=== PATIENT | male | born 1975 | race Caucasian/White ===

== ENCOUNTER 2018-06-19 11:21 | Day surgery (SDC) | payer MEDICAID ==
[~2018-06-19] VITALS: Ht 171.4 cm; Wt 86.4 kg
[~2018-06-19 11:21] MED LIST: LOPE2 PO; OXYC10 PO; SODIUM CHLORIDE 0.9% 1,000 ML IV ONE
[2018-06-19] MEDS ORDERED: PROPOFOL 1% 20 ML VIAL IVP ONE (11:22)
[2018-06-19] MEDS ORDERED: LIDOCAINE/PF 2% 5 ML VIAL INJ ONE (11:22)
== END 2018-06-19 14:30 | disposition home or self-care (01) ==
LOC: SURGERY 11:21 → EDSEX 13:00 → SURGERY 14:30
PROVIDERS: ATTEND Student in an Organized Health Care Education/Training Program
DX: K31.89 Other diseases of stomach and duodenum (principal); K31.82 Dieulafoy lesion (hemorrhagic) of stomach and duodenum; Z88.5 Allergy status to narcotic agent; Z90.49 Acquired absence of other specified parts of digestive tract; Z79.891 Long term (current) use of opiate analgesic; Z79.899 Other long term (current) drug therapy; Z98.890 Other specified postprocedural states
CPT/HCPCS: 43239; 88305; 88312; C1769; J2704; J3490; J7030

== ENCOUNTER 2018-06-27 05:16 | Day surgery (SDC) | payer MEDICAID ==
[~2018-06-27] VITALS: Ht 170.2 cm; Wt 88.2 kg
[2018-06-27] MEDS ORDERED: MIDAZOLAM HCL 2 MG/2 ML VIAL IVP ONE (05:17)
[2018-06-27] MEDS ORDERED: LIDOCAINE/PF 2% 5 ML VIAL IM ONE (05:17)
[2018-06-27] MEDS ORDERED: PROPOFOL 1% 20 ML VIAL IVP ONE (05:17)
[2018-06-27] MEDS ORDERED: SODIUM CHLORIDE 0.9% 1,000 ML IV ONE (06:00)
== END 2018-06-27 09:30 | disposition home or self-care (01) ==
LOC: EDSEX → SURGERY 05:16
PROVIDERS: ATTEND Student in an Organized Health Care Education/Training Program
DX: K63.3 Ulcer of intestine (principal); K52.89 Other specified noninfective gastroenteritis and colitis; K62.89 Other specified diseases of anus and rectum; Z90.49 Acquired absence of other specified parts of digestive tract; Z88.5 Allergy status to narcotic agent; Z79.891 Long term (current) use of opiate analgesic; Z88.1 Allergy status to other antibiotic agents; Z88.8 Allergy status to other drugs, medicaments and biological substances; Z79.899 Other long term (current) drug therapy
CPT/HCPCS: 45380; 88305; C1769; J2250; J2704; J3490; J7030